=== PATIENT | female | born 1940 | race Caucasian/White ===

== ENCOUNTER → 2017-07-12 | Outpatient (CLI) | payer MEDICARE, BC ==
[~2017-07-12] MED LIST: ALDACTONE 25MG25 M1 PO; AMLOPIDINE; ASPI325T6 PO; ASPIR-LOW81 MG PO; BETAPACE 120MG120 MG PO; CEFACLOR250 MG PO; CEPHALEXIN500 M1 PO; CHOLESTYRAMINE1 PO1; CRANBERRY FRUI425 MG PO; EXCEDRIN TENSION HA PO; GLUCOPHAGE500 MG/TAB PO; HCTZ; MULTIPLE VITAMI1 CAP PO; NORVASC 5MG5 MG/TAB PO; OGEN 0.6250.75 MG PO; OMNICEF 300MG300 MG PO; PEPCID AC10 M1 PO; PRILOSEC20 MG PO; PROAIR HFA0.09 MG/AC IH; QUESTRAN4 GM/9 GM PO; SOTALOL; TYLENOL PM EXTR1 TA1 PO; ZYLOPRIM 100MG100 MG PO; [UNRECOGNIZED DRUG - OTHER]; [UNRECOGNIZED DRUG - REMARK]
== END ==
LOC: MC.RAD 08:16
DX: Z12.31 Encounter for screening mammogram for malignant neoplasm of breast (principal)

== ENCOUNTER → 2018-02-18 | Outpatient (CLI) | payer MEDICARE, BC ==
[2018-02-18 11:23] LABS: HEMATOCRIT 39.1 % (37.0-47.0); HEMOGLOBIN 12.6 g/dl (12.5-16.0); MEAN CELL VOLUME 95 fl (80.0-100.0); MEAN CORPUSCULAR HEMOGLOBIN 31 pg (27.0-31.0); MEAN CORPUSCULAR HGB CONC 32 g/dl (33.0-37.0); MEAN PLATELET VOLUME 8.9 fl (7.4-10.4); PLATELET COUNT 404 K/mm3 (130-400); RED BLOOD COUNT 4.11 M/mm3 (4.10-5.30); REDCELL DISTRIBUTION WIDTH-CV 13.2 % (11.5-14.5)
== END ==
LOC: COL.LAB 10:51
PROVIDERS: Nurse Practitioner Family
DX: J18.9 Pneumonia, unspecified organism (principal)

== ENCOUNTER → 2018-03-18 | Outpatient (CLI) | payer MEDICARE, BC | LOC: COL.RAD 09:50 | DX: J98.4 Other disorders of lung (principal) ==

== ENCOUNTER → 2018-07-24 | Outpatient (CLI) | payer MEDICARE, BC | LOC: MC.RAD 08:22 | DX: Z12.31 Encounter for screening mammogram for malignant neoplasm of breast (principal) ==

== ENCOUNTER → 2018-07-26 | Outpatient (CLI) | payer MEDICARE, BC | LOC: COL.RAD 07:30 | DX: N30.21 Other chronic cystitis with hematuria (principal) ==

== ENCOUNTER 2018-09-05 13:11 | Emergency (ER) | payer MEDICARE, BC ==
[~2018-09-05] VITALS: Ht 167.6 cm; Wt 73.2 kg
[2018-09-05 13:15] VITALS: TEMP 97
[2018-09-05 17:08] VITALS: BP 133/70; PULSE 62
== END 2018-09-05 17:08 | disposition home or self-care (01) ==
LOC: COL.ER 13:11
DX: S09.90XA Unspecified injury of head, initial encounter (principal); S02.2XXA Fracture of nasal bones, initial encounter for closed fracture; S00.83XS Contusion of other part of head, sequela; S40.012S Contusion of left shoulder, sequela; S80.02XS Contusion of left knee, sequela; I48.91 Unspecified atrial fibrillation; I10 Essential (primary) hypertension; J45.909 Unspecified asthma, uncomplicated; E11.9 Type 2 diabetes mellitus without complications; Z79.84 Long term (current) use of oral hypoglycemic drugs; Z79.82 Long term (current) use of aspirin; Z23 Encounter for immunization; W01.198A Fall on same level from slipping, tripping and stumbling with subsequent striking against other object, initial encounter

== ENCOUNTER → 2018-10-25 | Outpatient (CLI) | payer MEDICARE, BC | LOC: COL.RAD 07:28 | DX: M43.16 Spondylolisthesis, lumbar region (principal); R31.0 Gross hematuria; M96.1 Postlaminectomy syndrome, not elsewhere classified; Z90.710 Acquired absence of both cervix and uterus | CPT/HCPCS: Q9967 ==

== ENCOUNTER → 2019-12-24 | Outpatient (CLI) | payer MEDICARE, BC | LOC: MC.RAD 15:54 | DX: Z12.31 Encounter for screening mammogram for malignant neoplasm of breast (principal) ==

== ENCOUNTER → 2020-12-29 | Outpatient (CLI) | payer MEDICARE, BC | LOC: MC.RAD 09:30 | DX: Z12.31 Encounter for screening mammogram for malignant neoplasm of breast (principal) ==

== ENCOUNTER → 2022-02-27 | Outpatient (CLI) | payer MEDICARE, BC | LOC: MC.RAD 10:31 | DX: Z12.31 Encounter for screening mammogram for malignant neoplasm of breast (principal) ==

== ENCOUNTER → 2022-12-04 | Outpatient (CLI) | payer MEDICARE, BC | LOC: MHCPAIN 13:16 | DX: M47.817 Spondylosis without myelopathy or radiculopathy, lumbosacral region (principal); M54.16 Radiculopathy, lumbar region; M53.3 Sacrococcygeal disorders, not elsewhere classified | CPT/HCPCS: J1100; Q9967 ==

== ENCOUNTER → 2023-01-02 | Outpatient (CLI) | payer MEDICARE, BC | LOC: MHCPAIN 10:48 | DX: M47.896 Other spondylosis, lumbar region (principal); M54.16 Radiculopathy, lumbar region; M25.551 Pain in right hip; M96.1 Postlaminectomy syndrome, not elsewhere classified; E11.9 Type 2 diabetes mellitus without complications; I10 Essential (primary) hypertension | CPT/HCPCS: G0463 ==